=== PATIENT | female | born 1985 | race Caucasian/White ===

== ENCOUNTER → 2016-11-21 | Outpatient (CLI) | payer OTHER ==
[~2016-11-21] MED LIST: ACET-1257 PO; AMOX500C3 PO; FERR1TAB13 PO; JUICE PLUS PO; MTR600X PO; OXYC-57 PO; POLY150C4 PO
== END | disposition home or self-care (01) ==
LOC: C.LABSPEC 16:12
PROVIDERS: ATTEND Obstetrics & Gynecology
DX: O99.333 Smoking (tobacco) complicating pregnancy, third trimester (principal); Z3A.00 Weeks of gestation of pregnancy not specified; F17.200 Nicotine dependence, unspecified, uncomplicated

== ENCOUNTER 2016-12-01 23:10 | Emergency (ER) | payer OTHER ==
[~2016-12-01] VITALS: Ht 162.6 cm; Wt 71.4 kg
[2016-12-01 23:14] VITALS: Ht 162.6 cm; Wt 71.4 kg
[2016-12-01] MEDS ORDERED: SODIUM CHLORIDE 0.9% 1000ML 1,000 ML IV STA (23:23)
[2016-12-01 23:45] LABS: URINE APPEARANCE CLEAR (CLEAR); URINE BILIRUBIN NEG (NEG); URINE COLOR YELLOW; URINE EPITHELIAL CELL AUTO >30 /lpf (0-5); URINE NITRITE NEG (NEG); URINE SPECIFIC GRAVITY 1.013 (1.000-1.030); UROBILINOGEN POS (NEG); ZZUR CULT IF INDIC CLEAN CATCH YES
[2016-12-01 23:46] LABS: MANUAL MICROSCOPIC REQUIRED? NO; REVIEW REQ? NO
[2016-12-01 23:52] LABS: HEMATOCRIT 34.8 % (37-47); MEAN CELL VOLUME 89.2 fL (80-100); MEAN CORPUSCULAR HGB CONC 34.8 g/dl (32-36); PLATELET COUNT 196 K/uL (130-400); WHITE BLOOD COUNT 6.46 K/uL (4.8-10.8)
[2016-12-02] MEDS ORDERED: ACET-1257 PO
[2016-12-02] MEDS ORDERED: JUICE PLUS PO (00:02)
[2016-12-02] MEDS ORDERED: POLY150C4 PO (00:03)
[2016-12-02 00:14] LABS: BUN/CREATININE RATIO 8.2 (10-20); CALCIUM 8.1 mg/dl (8.5-10.1); CREATININE 0.87 mg/dl (0.60-1.20)
[2016-12-02 00:32] LABS: BASO % 0.5 %; BASO ABS # 0.03 K/uL (0-0.2); COMPLETE YES; IG% 1.9 %; LYMPH % 19.3 %; LYMPH ABS # 1.25 K/uL (1.2-3.4); MONO % 5.1 %; NEUT % 73.2 %
[2016-12-02] MEDS ORDERED: POTASSIUM CHLORIDE 10 MEQ TABCR PO STA (00:43)
[2016-12-02] MEDS ORDERED: AMOXICILLIN 250 MG CAP PO STA (00:46)
[2016-12-02] MEDS ORDERED: AMOX500C3 PO (00:51)
[2016-12-02 00:53] VITALS: BP 122/76; PULSE 89; TEMP 37.1; O2SAT 100
[2016-12-02 01:40] LABS: INFLUENZA A PCR Neg for Influ A (NEG); INFLUENZA B PCR Neg for Influ B (NEG)
--- NOTE | 2016-12-02 05:03 | EMERGENCY ROOM VISIT NOTE ---
History First contact with patient: 23:23 Chief Complaint: FEVER Stated Complaint: FEVER FOR A WEEK, 38 WKS History of Present Illness The patient is a 31 year old female who presents to the Emergency Room with complaints of sore throat, fever and chills for the past week. Patient is 38 weeks . First . occasions. She follows at [facility]. Patient denies abdominal pain, vomiting, diarrhea, cramping, headache, neck stiffness, chest pain, dyspnea, cough. She is tolerate by mouth fluids and food. Tmax 100.4. Patient denies vaginal itching or discharge. No contractions. Review of Systems See HPI for pertinent positives & negatives. A total of 10 systems reviewed and were otherwise negative. Past Medical/Surgical History None Social History Smoking Status: Current Every Day Smoker Alcohol Use: none Drug Use: none Marital Status: in relationship Current/Historical Medications Scheduled Amoxicillin (Amoxil), 500 MG PO TID Polysaccharide Iron Complex (Ferrex 150), 150 MG PO 3XWK [Juice Plus], 6 CAP PO DAILY Scheduled PRN Acetaminophen (Tylenol Extra Strength), 1,000 MG PO Q8 PRN for Pain or Fever Allergies Coded Allergies: No Known Allergies (Unverified , 03/11/12) Physical Exam Vital Signs Date Time Temp Pulse Resp B/P Pulse Ox O2 Delivery O2 Flow Rate FiO2 12/02/16 00:53 37.1 89 16 122/76 100 Room Air 12/01/16 23:14 36.8 101 18 127/81 97 Room Air Pain Rating (0-10): 2.0 Physical Exam VITALS: Vitals are noted on the nurse's note and reviewed by myself. Vital signs stable. GENERAL: Pleasant female, in no acute distress, nondiaphoretic, well-developed well-nourished. SKIN: The skin was without rashes, erythema, edema, or bruising. There is no tenting of the skin. Capillary reflex less than 2 seconds. HEAD: Normocephalic atraumatic. EARS: External auditory canals clear, tympanic membranes pearly baptiste without erythema or effusion bilaterally. EYES: Pupils equal round and reactive to light and accommodation. Conjunctivae without injection, sclerae without icterus. Extraocular movements intact. NOSE: Patent, turbinates without inflammation or discharge. No sinus tenderness. MOUTH: Mucous membranes moist. Pharynx with erythema without exudate. Uvula midline. Airway patent. Tongue does not deviate. NECK: Supple without nuchal rigidity. No lymphadenopathy. No thyromegaly. Cervical spine is nontender. No JVD. No meningeal signs HEART: Regular rate and rhythm without murmurs gallops or rubs. LUNGS: Clear to auscultation bilaterally without wheezes, rales or rhonchi. No dullness to percussion. No retractions or accessory muscle use. ABDOMEN: Positive bowel sounds x 4. Normal tympanic percussion. Soft, , nontender, without masses or organomegaly. Chavez sign negative. No guarding or rebound tenderness. No CVA tenderness MUSCULOSKELETAL: No muscle atrophy, erythema, or edema noted. NEURO: Patient was alert and oriented to person place and time. Normal sensation to light and sharp touch. No focal neurological deficits. Medical Decision & Procedures Laboratory Results 12/01/16 23:40 Red Blood Count 3.90, Mean Corpuscular Volume 89.2, Mean Corpuscular Hemoglobin 31.0, Mean Corpuscular Hemoglobin Concent 34.8, Mean Platelet Volume 11.0, Neutrophils (%) (Auto) 73.2, Lymphocytes (%) (Auto) 19.3, Monocytes (%) (Auto) 5.1, Eosinophils (%) (Auto) 0.0, Basophils (%) (Auto) 0.5, Neutrophils # (Auto) 4.73, Lymphocytes # (Auto) 1.25, Monocytes # (Auto) 0.33, Eosinophils # (Auto) 0.00, Basophils # (Auto) 0.03 12/01/16 23:40 Test 12/01/16 23:30 12/01/16 23:35 12/01/16 23:40 Urine Color YELLOW Urine Appearance CLEAR (CLEAR) Urine pH 6.0 (4.5-7.5) Urine Specific [place] 1.013 (1.000-1.030) Urine Protein NEG (NEG) Urine Glucose (UA) NEG (NEG) Urine Ketones NEG (NEG) Urine Occult Blood NEG (NEG) Urine Nitrite NEG (NEG) Urine Bilirubin NEG (NEG) Urine Urobilinogen POS (NEG) Urine Leukocyte Esterase TRACE (NEG) Urine WBC (Auto) 5-10 /hpf (0-5) Urine RBC (Auto) 0-4 /hpf (0-4) Urine Hyaline Casts (Auto) 1-5 /lpf (0-5) Urine Epithelial Cells (Auto) >30 /lpf (0-5) Urine Bacteria (Auto) 1+ (NEG) Influenza Type A (RT-PCR) Neg for Influ A (NEG) Influenza Type B (RT-PCR) Neg for Influ B (NEG) White Blood Count 6.46 K/uL (4.8-10.8) Red Blood Count 3.90 M/uL (4.2-5.4) Hemoglobin 12.1 g/dL (12.0-16.0) Hematocrit 34.8 % (37-47) Mean Corpuscular Volume 89.2 fL (80-100) Mean Corpuscular Hemoglobin 31.0 pg (25-34) Mean Corpuscular Hemoglobin Concent 34.8 g/dl (32-36) Platelet Count 196 K/uL (130-400) Mean Platelet Volume 11.0 fL (7.4-10.4) Neutrophils (%) (Auto) 73.2 % Lymphocytes (%) (Auto) 19.3 % Monocytes (%) (Auto) 5.1 % Eosinophils (%) (Auto) 0.0 % Basophils (%) (Auto) 0.5 % Neutrophils # (Auto) 4.73 K/uL (1.4-6.5) Lymphocytes # (Auto) 1.25 K/uL (1.2-3.4) Monocytes # (Auto) 0.33 K/uL (0.11-0.59) Eosinophils # (Auto) 0.00 K/uL (0-0.5) Basophils # (Auto) 0.03 K/uL (0-0.2) RDW Standard Deviation 41.3 fL (36.4-46.3) RDW Coefficient of Variation 12.8 % (11.5-14.5) Immature Granulocyte % (Auto) 1.9 % Immature Granulocyte # (Auto) 0.12 K/uL (0.00-0.02) Red Blood Cell Morphology Unremarkable Anion Gap 12.0 mmol/L (3-11) Est Creatinine Clear Calc Drug Dose 90.8 ml/min Estimated GFR () 102.9 Estimated GFR (Non- 88.8 BUN/Creatinine Ratio 8.2 (10-20) Calcium Level 8.1 mg/dl (8.5-10.1) Monoscreen NEG (NEG) Date/Time Source Procedure Growth Status 12/01/16 23:20 Throat Group A Streptococcus Screen - Final SPECIMEN POSITIVE FOR GROUP A BETA ST... Complete 12/01/16 23:20 Throat Group A Streptococcus Screen (MAME) - Final Complete Medications Administered Medications (Trade) Dose Ordered Sig/[place] Route Start Time Stop Time Status Last Admin Dose Admin Sodium Chloride (Nss 1000ml) 1,000 ml @ 999 mls/hr Q1H1M STAT IV 12/01/16 23:23 12/02/16 00:23 DC 12/01/16 23:44 999 MLS/HR Potassium Chloride (Klor-Con M10) 40 meq NOW STAT PO 12/02/16 00:43 12/02/16 00:44 DC 12/02/16 00:57 40 MEQ Amoxicillin (Amoxil Cap) 500 mg NOW STAT PO 12/02/16 00:46 12/02/16 00:48 DC 12/02/16 00:57 500 MG ED Course Prior records/ancillary studies reviewed. Triage Nursing notes reviewed. Additional history obtained from family The patient's history was concerning for a sore throat. Differential diagnosis: Etiologies such as viral syndrome, tonsillitis, streptococcal pharyngitis, mononucleosis, peritonsillar abscess, retropharyngeal abscess, otitis, pneumonia , influenza, as well as others were entertained. ER treatment provided: Amoxicillin On reassessment the patient felt better. Diagnostics interpreted by me: The labs revealed positive strep test Negative mono test, hypokalemia and this is replaced orally Strep pharyngitis. Patient was started on amoxicillin. She no signs of meningitis or airway comprise or abscess. She was well-appearing. She is advised to follow-up with OB in a few days or here in the ER sooner for high fevers, lethargy, neck stiffness, worsening signs or symptoms or as needed. I do not believe the patient has emergent etiologies such as peritonsillar abscess , retropharyngeal abscess, otitis, pneumonia, meningitis, urinary tract infection, sepsis, bacteremia, as well as others were deemed relatively unlikely. The pt informed about the findings as listed above. All questions were answered and pleased with the treatment. Return instructions were outlined and the patient was discharged in stable condition. Outpatient prescription management: Amoxicillin Case reviewed with my attending Referral: The patient was referred back to their primary care physician for follow-up in 2 to 3 days for a recheck of the current condition. Medical Decision as above Impression Primary Impression: Strep pharyngitis Additional Impression: Hypokalemia Departure Information Dispostion Home / Self-Care Condition GOOD Prescriptions Amoxicillin (AMOXIL) 500 Mg Cap 500 MG PO TID for 10 Days, #30 CAP Prov: Cookie Chawla .COY 12/02/16 Forms HOME CARE DOCUMENTATION FORM, IMPORTANT VISIT INFORMATION Patient Instructions My [facility], ED Strep Pharyngitis Conf Additional Instructions Amoxicillin 500mg: Take one pill 3 times daily for 10 days for your infection. All antibiotics can cause diarrhea. If this occurs and you feel worse or it does not resolve in 1-2 days follow up with your doctor or return to the Emergency Department as this could be signs of serious underlying problems. Any medication can cause an allergic reaction, stop the pills immediately and return to the ER for rash, hives, breathing difficulties, or swelling. Acetaminophen(Tylenol) may be used for fever or pain. Use 1000mg every six hours as needed. Avoid using more than 3000mg in a 24 hour period. Rest and drink plenty of fluids. Controlling your fever with Tylenol and Ibuprofen as above will make you feel better. Wash your hands after nose blowing, sneezing, or coughing. Most germs are spread through contact, therefore improper hygiene may result in your close contacts and loved ones becoming ill just like you. Continue current medications. Return to the ER for severe headache, neck stiffness, chest pain, difficulty breathing, fevers, vomiting, worsening of your condition, or as needed. Follow up with your PRINT DESIGNER this week for a recheck of your current condition. Problem Qualifiers
== END 2016-12-02 01:05 | disposition home or self-care (01) ==
LOC: C.EDB 23:11 → C.EDC 12-02 01:05
DX: O99.513 Diseases of the respiratory system complicating pregnancy, third trimester (principal); J02.0 Streptococcal pharyngitis; O26.893 Other specified pregnancy related conditions, third trimester; E87.6 Hypokalemia; O99.283 Endocrine, nutritional and metabolic diseases complicating pregnancy, third trimester; Z3A.38 38 weeks gestation of pregnancy; O99.333 Smoking (tobacco) complicating pregnancy, third trimester; F17.210 Nicotine dependence, cigarettes, uncomplicated

== ENCOUNTER 2016-12-19 15:08 | Inpatient (IN) | payer OTHER ==
[~2016-12-19] VITALS: Ht 162.6 cm; Wt 68.2 kg
[~2016-12-19 15:08] MED LIST changes: -AMOX500C3 PO; -FERR1TAB13 PO; -MTR600X PO; -OXYC-57 PO
[2016-12-19] MEDS ORDERED: LACTATED RINGER'S 1000ML 500 ML IV ONE (15:46)
[2016-12-19] MEDS ORDERED: LACTATED RINGER'S 1000ML 1,000 ML IV SCH ×2 (15:46→18:36)
[2016-12-19] MEDS ORDERED: CITRIC ACID/SODIUM CITRATE 15 ML UDC ONE (16:14)
[2016-12-19] MEDS ORDERED: LACTATED RINGER'S 1000ML 1,000 ML IV ONE (16:20)
[2016-12-19] MEDS ORDERED: MoRPHine SULFATE PF 1 MG/ML 10 ML AMP/VIAL ONE (16:24)
[2016-12-19] MEDS ORDERED: CITRIC ACID/SODIUM CITRATE 15 ML UDC PO ONE (16:30)
[2016-12-19] MEDS ORDERED: LIDOCAINE HCL 2% JELLY 30 ML TUBE EXT ONE (16:36)
[2016-12-19 16:39] LABS: BASO % 0.4 %; BASO ABS # 0.06 K/uL (0-0.2); COMPLETE YES; EOS % 0.4 %; HEMATOCRIT 33.6 % (37-47); IG% 0.5 %; LYMPH ABS # 4.25 K/uL (1.2-3.4); MEAN CELL VOLUME 94.1 fL (80-100); MEAN CORPUSCULAR HEMOGLOBIN 31.1 pg (25-34); MEAN PLATELET VOLUME 10.3 fL (7.4-10.4); MONO % 7.8 %; NEUT % 61.9 %; PLATELET COUNT 449 K/uL (130-400); RED BLOOD COUNT 3.57 M/uL (4.2-5.4); WHITE BLOOD COUNT 14.67 K/uL (4.8-10.8)
--- NOTE | 2016-12-19 16:59 | HISTORY & PHYSICAL EXAMINATION ---
DATE OF ADMISSION: 12/19/2016 PREOPERATIVE DIAGNOSES: 1. Intrauterine at 40 and 0/7 weeks. 2. Suspected intrauterine growth restriction. 3. Nonreassuring heart testing. HISTORY OF PRESENT ILLNESS: The patient is a 31-year-old 1, para 0 with an EDC of 12/19/2016 for an estimated gestational age of 40 and 0/7 weeks who presented to the office today for routine visit. On the monitor there was a decel noted and she was sent over for prolonged monitor. She notes good movement, some cramping, but no real contractions, no bleeding, no leaking. She was placed on the monitor and within the first 10 minutes she had 1 small variable. She was admitted for observation. We were going to do an ultrasound because we had concern for IUGR. She was only measuring 28-30 cm. During the course of waiting for the ultrasound, the strip was category 1 until the fetus had a spontaneous 5-6 minute prolonged deceleration to the 60s. This did resolve with multiple position changes and oxygen. Given this chain of events and our remoteness from vaginal delivery, I do not recommend induction because I suspect that this fetus will not tolerate contractions. Therefore I recommended delivery via section. ALLERGIES: No known drug allergies. MEDICATIONS: Iron and Juice Plus supplements. PAST OB AND DELIVERY MGR HISTORY: This is the patient's first . She denies history of abnormal Pap smears or sexually transmitted diseases. ALLERGIES: She has no known drug allergies. PAST MEDICAL HISTORY: She is healthy. Denies thyroid disease, asthma, heart disease, heart murmur, diabetes, kidney or liver problems. She has had the chickenpox in the past. SOCIAL HISTORY: The patient did admit to smoking a pack a day but is down to 3-4 cigarettes a day. She denies alcohol or drug use. She lives with her mother and the father of the baby is present in the room. SURGICAL HISTORY: None. PHYSICAL EXAMINATION: GENERAL: This is a well-developed, well-nourished white female in no acute distress, afebrile. VITAL SIGNS: Stable. NECK: Supple. ABDOMEN: Soft, gravid and nontender. It measures at best 30 cm. It is soft. EXTREMITIES: Benign. CERVIX EXAMINATION: Done in the office was and -[address] Bateman. Tocodynamometer shows mild intermittent contractions at best. heart tones now in the 120s with moderate variability, small accels to the 150s and other than the prolonged decel looks pretty good. LABORATORY DATA: O positive, antibody negative, Pap normal, rubella immune, RPR nonreactive, hepatitis negative, HIV negative, chlamydia and gonorrhea negative. Glucose test x2 negative. She is positive for group B strep. ASSESSMENT: 1, para 0 at 40 and 0/7 weeks by good dating who likely had IUGR was sent over for prolonged monitoring and had a 5-6 minute bradycardic decel to the 60s that did resolve with resuscitation. Unfortunately, this patient needs to be delivered, but she is very remote from delivery. I suspect that this fetus does have IUGR and may indeed have oligohydramnios as well but have not been able to confirm this via official ultrasound. We discussed the risks and benefits of possibly inducing labor, but I do not feel that this is in the patient or the fetus's best interest given these spontaneous prolonged decel in the absence of even contractions. I do not suspect that this patient's baby will tolerate labor at all. Therefore, I have recommended primary section. They are agreeable. The risks of the procedure were discussed with the patient including the risks of anesthesia, bleeding requiring transfusion, infection, poor wound healing, damage to surrounding structures including bowel, bladder, vessels, nerves and ureters with need for further surgery, hospitalization or intervention. Discussed the risk of heart attack, blood clot, stroke or and injury to the baby. Consent was reviewed and signed. The patient and the father of the baby expressed understanding of the situation and consent to the procedure, we plan to proceed urgently. DANILO
[2016-12-19] MEDS ORDERED: MEPERIDINE HCL 25 MG/ML CARP IV PRN (17:00)
[2016-12-19] MEDS ORDERED: EpHEDrine SULFATE INJ 50 MG/ML AMP IV PRN ×2 (17:00→18:45)
[2016-12-19] MEDS ORDERED: NURSING VERBAL MED ORDER ONE (17:00)
[2016-12-19] MEDS ORDERED: ONDANSETRON INJ 2 MG/ML 2 ML VIAL IV PRN (17:00)
[2016-12-19] MEDS ORDERED: HYDROmorphone INJ 1 MG/ML SYR IV PRN (17:00)
[2016-12-19] MEDS ORDERED: ATROPINE SULFATE 0.1 MG/ML 5ML SYR IV PRN (17:00)
[2016-12-19] MEDS ORDERED: FENTANYL CITRATE INJ 50 MCG/1 ML 2 ML VIAL IV PRN (17:00)
[2016-12-19] MEDS ORDERED: LABETALOL HCL IV 5 MG/ML 20ML IV PRN (17:00)
[2016-12-19] MEDS ORDERED: CEFAZOLIN IV 2,000 MG in DEXTROSE 5% 50ML 50 ML IV ONE (17:15)
[2016-12-19] MEDS ORDERED: OXYTOCIN INJ 10 UNITS/ML VIAL ONE (17:54)
[2016-12-19] MEDS ORDERED: FENTANYL CITRATE INJ 50 MCG/1 ML 2 ML VIAL ONE (17:54)
[2016-12-19] MEDS ORDERED: EpHEDrine SULFATE 50MG/5ML SYR ONE (17:56)
[2016-12-19] MEDS ORDERED: ONDANSETRON INJ 2 MG/ML 2 ML VIAL ONE (17:56)
--- NOTE | 2016-12-19 18:28 | Medical Student: [facility] ---
Operative Report Operative Date Dec 19, 2016. Pre-Operative Diagnosis 1.IUP at 40-0 2. non-reassuring heart tones 3. suspect IGR Post-Operative Diagnosis same Procedure(s) Performed primary low trasnverse caesarean section Surgeon Dr. Cook Stoker Erector Surgeon(s) Carolann Us RN and MS [id number] Estimated Blood Loss 600mls Findings living male , small amount of clear amniotic fluid. APGARS 8/9, weight 2.36kg. Uterus, tubes, ovaries normal in appearance. Drains koo Anesthesia spinal Complication(s) None Disposition L&D Implants none
[2016-12-19] MEDS ORDERED: SODIUM CHLORIDE 0.9% 1000ML 1,000 ML IV PRN (18:33)
[2016-12-19] MEDS ORDERED: LACTATED RINGER'S 1000ML 500 ML IV PRN (18:33)
[2016-12-19] MEDS ORDERED: NALOXONE HCL INJ 0.08 MG in SYRINGE 1.8 ML IV PRN (18:33)
[2016-12-19] MEDS ORDERED: NALOXONE HCL INJ 1 MG in SODIUM CHLORIDE 0.9% 1000ML 1,000 ML IV PRN (18:33)
[2016-12-19] MEDS ORDERED: METHYLERGONOVINE MALEATE 0.2 MG/ML AMP ONE (18:35)
[2016-12-19] MEDS ORDERED: MEPERIDINE HCL 75 MG/ML CARP IV PRN (18:45)
[2016-12-19] MEDS ORDERED: DiphenhydrAMINE HCL 50 MG/ML VIAL IV PRN ×2 (18:45)
[2016-12-19] MEDS ORDERED: OXYCODONE/ACETAMINOPHEN 5-325 TAB PO PRN (18:45)
[2016-12-19] MEDS ORDERED: MoRPHine SULFATE PF 1 MG/ML 10 ML AMP/VIAL EPI PRN (18:45)
[2016-12-19] MEDS ORDERED: LANOLIN OINT EXT PRN ×2 (18:45)
[2016-12-19] MEDS ORDERED: DC INTRASPINAL MORPHINE SCH (18:45)
[2016-12-19] MEDS ORDERED: NALBUPHINE HCL INJ 10 MG/ML AMP IV PRN (18:45)
[2016-12-19] MEDS ORDERED: MEPERIDINE HCL 50 MG/ML CARP IV PRN (18:45)
[2016-12-19] MEDS ORDERED: DIPHTHERIA/TETANUS/PERTUSSIS 0.5 ML SYR/VIAL IM. ONE (18:45)
[2016-12-19] MEDS ORDERED: NO NARCOTICS OR SEDATIVES SCH (18:45)
[2016-12-19] MEDS ORDERED: NALOXONE HCL 0.4 MG/1 ML VIAL/CARP IV PRN (18:45)
--- NOTE | 2016-12-19 19:37 | OPERATIVE REPORT ---
DATE OF OPERATION: 12/19/2016 PREOPERATIVE DIAGNOSES: 1. Intrauterine at 40 and 0/7th weeks. 2. Nonreassuring heart tone status. 3. Suspected intrauterine growth restriction. POSTOPERATIVE DIAGNOSES: Same. PROCEDURES: Primary low transverse section. SURGEON: Dr. Cook. ORACLE FUSION DEVELOPER: Carolann Us RN and MS [place]3. ESTIMATED BLOOD LOSS: 600 mL. FLUIDS: URINE OUTPUT: Copious amounts of clear yellow urine drained from the bladder at the end of the procedure. INDICATIONS: The patient is a 1, para 0 at 40 and 0/7th weeks who presented for her routine visit today. Her fundal measurement was found to be quite small at 28-30 cm. She was placed on the nonstress test monitor and was found to have variable and so was sent over for further monitoring. While under further monitoring and waiting ultrasound, the fetus had a decel that was prolonged, lasting for 5-6 minutes to the 60s, this resolved with resuscitation but it was spontaneous, not associated with any contractions. Given this situation, I have recommended proceeding to delivery. Unfortunately, we are miles away from vaginal delivery and I do not suspect that this fetus will tolerate contractions, so I have recommended that we proceed with delivery and they are good to go with this. FINDINGS: Viable male infant, minimal amount of amniotic fluid on amniotomy but it was clear. Apgars pending, weight pending. Uterus, tubes, and ovaries were normal bilaterally. COMPLICATIONS: None. DRAINS: Cooper. DISPOSITION: To recovery room in stable condition. PROCEDURE: The patient was taken to the operating room where she was identified verbally and by bracelet. She was transferred to the operating table where spinal anesthetic was placed and the fetus was monitored throughout this and no abnormalities were noted. The patient was placed in dorsal supine position with a leftward tilt. A Cooper catheter had previously been placed. The patient was prepped and draped in normal sterile fashion. Timeout was held identifying correct patient, procedure, positioning and preoperative antibiotics. A Pfannenstiel skin incision was made with the knife. This was taken down to the underlying layer of fascia with Bovie electrocautery. Bleeding was attended to with Bovie electrocautery. The fascia was incised in the midline with cautery and taken out laterally with scissors. The superior edge of the fascial incision was grasped, elevated and the underlying layer of rectus muscle was taken off bluntly and with scissors. In a similar fashion, the inferior edge of the fascial incision was grasped, elevated and the underlying layer of rectus muscle was taken off bluntly and with scissors. The muscles were bluntly and sharply in the midline, the peritoneum was entered bluntly and the peritoneal incision was stretched with the hard rock drill operator's hand. Bladder blade was placed. A bladder flap was created by grasping the vesicouterine peritoneum, incising with scissors and creating the bladder flap digitally. The bladder blade was replaced. Hysterotomy incision was made with the knife. Upon amniotomy, there was a very minimal amount of clear fluid. The hysterotomy incision was stretched with the hard rock drill operator's fingers. The head was wedged into the pelvis and it was removed atraumatically using hard rock drill operator's hand. The head was delivered atraumatically through the incision. The nose and mouth were bulb suctioned. There was a loose nuchal cord x1 that was reduced and rest of the infant was delivered without difficulty. There was immediate cry. Cord was clamped and cut and the was handed off to waiting felt cutter for drying and attention. Cord blood and segment were obtained. Placenta was delivered by manual extraction. Of note, there was no Faulk's jelly at all in the umbilical port. The uterus was exteriorized and cleared of all clots and debris with moistened laparotomy sponges. The hysterotomy incision was repaired with 2 layers, first in a running locked 0 layer Vicryl, and the second in an imbricating 0 Vicryl layer. Two [id number] sutures were required in the main incision for hemostasis and hemostasis was assured. Posterior cul-de-sac was irrigated and cleared of all clot and debris. The uterus was reanteriorized. Hemostasis was noted to be excellent. The rectus muscles were reapproximated in the midline with interrupted sutures of 0 Vicryl. The fascia was reapproximated starting at the edges and meeting in the midline with 0 Vicryl, the subcuticular tissue was irrigated and bleeding was attended to with Bovie electrocautery and the skin was closed with 4-0 Vicryl in subcuticular fashion. All sponge, lap and needle counts were correct x2. The patient tolerated the procedure well and was taken to recovery room in stable condition. I attest to the content of the Intraoperative Record and any orders documented therein. Any exceptio ns are noted below.
[2016-12-19 19:38] VITALS: Ht 162.6 cm; Wt 68.2 kg
[2016-12-19] MEDS ORDERED: OXYTOCIN INJ 20 UNITS in LACTATED RINGER'S 1000ML 1,000 ML IV SCH (20:00)
[2016-12-19 21:00] VITALS: O2SAT 99
[2016-12-19] MEDS: SIMETHICONE 80 MG CHEW PO SCH (21:34)
--- NOTE | 2016-12-19 21:53 | Anesthesiology Progress Note ---
Anesthesia Post Op Note Date & Time Dec 19, 2016 at 21:53 Notes Mental Status: alert / awake / arousable, participated in evaluation Pt Amnestic to Procedure: Yes Nausea / Vomiting: adequately controlled Pain: adequately controlled Airway Patency, RR, SpO2: stable & adequate BP & HR: stable & adequate Hydration State: stable & adequate Neuraxial Anesthesia: was administered, sensory block is resolving Anesthetic Complications: no major complications apparent
[2016-12-19 22:00] VITALS: O2SAT 99
[2016-12-19 22:30] VITALS: BP 111/59; PULSE 63; TEMP 37.1; O2SAT 99
[2016-12-19 23:00] VITALS: O2SAT 99
[2016-12-19 23:15] VITALS: BP 118/70; PULSE 58; TEMP 36.7; O2SAT 100
[2016-12-20] VITALS (13 sets, daily range): BP systolic 106–114; BP diastolic 59–70; PULSE 61–71; TEMP 36.8–37.1; O2SAT 95–100
[2016-12-20] MEDS: KETOROLAC TROMETHAMINE 30 MG/ML VIAL IV. PRN ×2 (00:42→08:38)
--- NOTE | 2016-12-20 07:00 | Progress Note ---
Subjective Dec 20, 2016. Subjective conversation w/ patient, physical exam Ambulation: limited ambulation (still in bed) Voiding: koo catheter in place Passing Gas: No Diet Tolerance: Clear Liquids Lochia: Small Feeding Type: Bottle Feeding (breast feeding also) Review of Systems Constitutional: No chills, No fever Respiratory: No cough, No shortness of breath Cardiac: No chest pain, No edema Abdomen: No nausea, No vomiting Objective Vital Signs Date Time Temp Pulse Resp B/P Pulse Ox O2 Delivery O2 Flow Rate FiO2 12/20/16 05:00 20 99 12/20/16 04:00 20 98 12/20/16 03:00 20 99 12/20/16 02:00 18 100 12/20/16 01:00 18 100 12/20/16 00:00 18 100 12/19/16 23:15 100 Room Air 12/19/16 23:15 36.7 58 18 118/70 100 Room Air 12/19/16 23:15 18 100 12/19/16 23:00 20 99 12/19/16 22:30 37.1 63 20 111/59 99 Room Air 12/19/16 22:30 99 Room Air 12/19/16 22:30 99 Room Air 12/19/16 22:00 20 99 12/19/16 21:00 20 99 Physical Exam General Appearance: WELL-APPEARING Respiratory/Chest: lungs clear, normal breath sounds Cardiovascular: regular rate, rhythm, no murmur Abdomen: normal bowel sounds, + tenderness (mild tenderness around incision site) Incision Description: Clean, Dry & Intact Extremities: non-tender, no pedal edema, no calf tenderness Laboratory Results Last 24 Hours Test 12/19/16 16:30 12/20/16 06:00 White Blood Count 14.67 K/uL Red Blood Count 3.57 M/uL Hemoglobin 11.1 g/dL Hematocrit 33.6 % Mean Corpuscular Volume 94.1 fL Mean Corpuscular Hemoglobin 31.1 pg Mean Corpuscular Hemoglobin Concent 33.0 g/dl Platelet Count 449 K/uL Mean Platelet Volume 10.3 fL Neutrophils (%) (Auto) 61.9 % Lymphocytes (%) (Auto) 29.0 % Monocytes (%) (Auto) 7.8 % Eosinophils (%) (Auto) 0.4 % Basophils (%) (Auto) 0.4 % Neutrophils # (Auto) 9.08 K/uL Lymphocytes # (Auto) 4.25 K/uL Monocytes # (Auto) 1.15 K/uL Eosinophils # (Auto) 0.06 K/uL Basophils # (Auto) 0.06 K/uL RDW Standard Deviation 47.5 fL RDW Coefficient of Variation 13.7 % Immature Granulocyte % (Auto) 0.5 % Immature Granulocyte # (Auto) 0.07 K/uL Nucleated RBC Absolute Count (auto) 0.02 K/uL Nucleated Red Blood Cells % 0.1 % Assessment and Plan Problem List Medical Problems: (1) Strep pharyngitis Status: Acute Post-Op (C section) Day#: 1 Continue Routine Care: s/p Day 1 - Vital signs reviewed and WNL - Hemoglobin 11.1 yesterday - Blood type: O+, GBS+, Rubella immune - Pt doing well clinically - Encourage ambulation, advance diet, remove koo catheter, control pain with motrin and percocet prn, monitor lochia - CONTINUE REGULAR POST C SECTION CARE Resident Physician Supervision Note: I was present with Dr. Quan during the history and exam. I discussed the case with the resident and agree with the findings and plan as documented in the note. Any exceptions or clarifications are listed here: none, routine post op care. Documented By: Diya Cook
[2016-12-20 07:02] LABS: BASO % 0.4 %; BASO ABS # 0.05 K/uL (0-0.2); EOS % 0.2 %; HEMATOCRIT 26.9 % (37-47); IG% 0.5 %; LYMPH ABS # 2.94 K/uL (1.2-3.4); MEAN CELL VOLUME 92.4 fL (80-100); MEAN CORPUSCULAR HEMOGLOBIN 30.6 pg (25-34); MEAN CORPUSCULAR HGB CONC 33.1 g/dl (32-36); MONO % 8.7 %; NEUT % 68.2 %; PLATELET COUNT 340 K/uL (130-400); RED BLOOD COUNT 2.91 M/uL (4.2-5.4); WHITE BLOOD COUNT 13.36 K/uL (4.8-10.8)
[2016-12-20 07:26] LABS: COMPLETE YES
[2016-12-20] MEDS: DOCUSATE SODIUM 100 MG CAP PO SCH ×2 (08:38→20:02)
[2016-12-20] MEDS: PRENATAL VITAMIN TAB PO SCH (08:39)
[2016-12-20] MEDS: SIMETHICONE 80 MG CHEW PO SCH ×3 (08:39→20:00)
[2016-12-20] MEDS: OXYCODONE/ACETAMINOPHEN 5-325 TAB PO PRN ×2 (15:41→20:01)
[2016-12-20] MEDS: IBUPROFEN 600 MG TAB PO PRN ×2 (15:42→20:01)
[2016-12-21 00:30] VITALS: BP 113/73; PULSE 58; TEMP 36.8
[2016-12-21] MEDS: IBUPROFEN 600 MG TAB PO PRN ×6 (00:37→23:14)
[2016-12-21] MEDS: OXYCODONE/ACETAMINOPHEN 5-325 TAB PO PRN ×6 (00:37→23:15)
[2016-12-21 06:41] LABS: HEMATOCRIT 27.4 % (37-47)
--- NOTE | 2016-12-21 07:43 | Progress Note ---
Subjective Dec 21, 2016. Subjective conversation w/ patient, physical exam Ambulation: ambulating normally Voiding: no voiding problems Passing Gas: Yes Diet Tolerance: Regular Diet Lochia: Moderate Feeding Type: Breast Feeding Review of Systems Constitutional: No fever Respiratory: No cough, No shortness of breath Cardiac: No chest pain, No edema, No palpitations Abdomen: No nausea, No pain, No vomiting Objective Vital Signs Date Time Temp Pulse Resp B/P Pulse Ox O2 Delivery O2 Flow Rate FiO2 12/21/16 00:30 Room Air 12/21/16 00:30 36.8 58 18 113/73 Room Air 12/20/16 19:25 36.8 67 18 112/68 Room Air 12/20/16 15:35 98 Room Air 12/20/16 15:35 36.9 61 20 114/70 98 Room Air 12/20/16 12:35 37.0 71 16 106/59 97 Room Air 12/20/16 12:02 18 98 12/20/16 10:00 16 97 12/20/16 09:00 16 95 12/20/16 07:50 37.1 64 16 110/63 97 Room Air 12/20/16 07:50 16 97 12/20/16 07:50 Room Air Physical Exam General Appearance: WELL-APPEARING, NO APPARENT DISTRESS Respiratory/Chest: chest non-tender, lungs clear Cardiovascular: regular rate, rhythm, no murmur Abdomen: normal bowel sounds, soft Fundus: Firm, Non-Tender, Relation to Umbilicus (2 cm below) Incision Description: Clean, Dry & Intact Extremities: normal range of motion, non-tender, no calf tenderness Laboratory Results Last 24 Hours Test 12/21/16 06:20 Hemoglobin 8.8 g/dL Hematocrit 27.4 % Assessment and Plan Problem List Medical Problems: (1) Strep pharyngitis Status: Acute Post-Op (C section) Day#: 2 Continue Routine Care: Resident Physician Supervision Note: I was present with Dr. Quan during the history and exam. I discussed the case with the resident and agree with the findings and plan as documented in the note. Any exceptions or clarifications are listed here: [None] Documented By: Clarice Bateman In my clinical judgment this beneficiary meets acute admission criteria, established by [facility], that includes being hospitalized through two midnights.s/p C section day 2 - Vital signs reviewed and wnl - Hgb reviewed 8.9 yesterday - GBs+, O+, Rubella immune - Pt doing well clinically - Encourage ambulation, monitor and control pain w/motrin and percocet, resume regular diet - Encourage breast feeding - CONTINUE ROUTINE POST CARE
[2016-12-21] MEDS ORDERED: OXYC-57 PO (07:53)
[2016-12-21] MEDS ORDERED: MTR600X PO (07:53)
--- NOTE | 2016-12-21 07:55 | Discharge Instructions ---
Discharge Instructions Admission Reason for Admission: Non-Reassuring Electronic Monitoring Tracing Discharge Discharge Diagnosis / Problem: recovery from section Discharge Goals Goal(s): Routine recovery after Medications Continue Dispensed Medications: lansinoh Activity Recommendations Activity Limitations: per Instructions/Follow-up section . Instructions / Follow-Up Instructions / Follow-Up ACTIVITY RECOMMENDATIONS: * Gradual return to full activity over the next 2-3 weeks. * No lifting - nothing heavier than baby over the next 2-3 weeks. * Do not engage in vigorous exercise, sexual activity or sports until cleared by your physician. * Do not drive or operate any motorized equipment until cleared by your physician. * You may shower/bathe daily. MEDICATIONS: For discomfort or pain, you may use Acetaminophen (Tylenol), Ibuprofen (Advil), or Naproxen (Aleve) following the package directions. For constipation you may use Colace following the package directions. BREAST CARE: If you are not breast feeding: * Wear a supportive bra 24 hours a day for one to two weeks. * Avoid stimulating your breasts and nipples as much as possible during the first few weeks after delivery. * When taking a shower, have the warm water hit your back, not breasts. * When your breasts feel full, apply ice packs. Usually three to four times a day helps ease the discomfort. * Take a mild pain medication (Tylenol / Motrin) when you are uncomfortable. If breast feeding: * Use breast milk to lubricate nipples. Lansinoh cream may be used for sore nipples. You do not need to remove cream prior to breast feeding. If using a different brand of cream, check the label for directions regarding removal of cream prior to nursing. * Wear a supportive bra. * If having problems with breasts or breast feeding, call a client experience consultant or your health care provider. SPECIAL CARE INSTRUCTIONS: When you are discharged from the hospital, it is important for you to follow the instructions listed below: * During the first week at home, you should be able to care for yourself and your baby. In addition, the usual light household activities are encouraged. * Limit your activities to the way you feel. Do not try to clean the house or move furniture. Be sensible. * If you actively engage in sports and have done so up until the time of your delivery, you may resume these activities as soon as you feel able. This may take up to one month or even longer. Use good judgment. * Continue to take your vitamins for at least six weeks after the of your baby. * Your diet need not be limited unless you were on a special diet before your delivery. Breast-feeding mothers need around 2500 calories per day and at least 64-80 ounces of fluid per day (8 to 10 glasses). * You should eat foods from the four major food groups. Crash diets or fad diets are to be avoided. Eating lean meats, fresh fruits and vegetables, low-fat dairy products, high fiber foods and a regular exercise program, will help you get back to your pre- weight without putting your health at risk. * Constipation is sometimes a problem after delivery. Take a mild laxative as needed. If breast feeding, Milk of Magnesia is acceptable to use. You may use a suppository or Fleets enema. * A daily shower or tub bath is suggested. Wash incision daily with warm soapy water and pat dry. It doesn't need to be covered unless drainage is present. * A bloody vaginal discharge will usually continue until around four weeks . A small amount of bleeding may continue for as long as six weeks. Vaginal discharge changes from the bright red bleeding after delivery to pink then brownish and finally yellowish-pink before becoming white and disappearing. * Bleeding may increase with activity. Your first period may come in 4-8 weeks. If you are breast feeding, your period may be delayed even longer. * Shafter (sex) can begin whenever both you and your partner feel comfortable and do not have any form of genital infection. It is recommended that you wait at least six weeks for internal and external healing to occur. If you have questions, please talk to your health care practitioner. A condom should be used to prevent infection and . * Foreplay, gentle intercourse and lubrication is very important the first several times to prevent pain. A water-based lubricant such as K-Y jelly or Astroglide may be used. * If you have RH negative blood and your baby is RH positive, you will receive RHOGAM by injection prior to discharge. The nurse will give you a card to keep with you that has the date and place that you received RHOGAM after delivery. * During your care, you had a Rubella screen done to check for the presence of rubella antibodies in your blood. If your test was negative, you will receive a Rubella vaccine prior to discharge. This vaccine may cause a fever, soreness at the injection site and flu-like symptoms. If these symptoms persist, notify your health care practitioner. is not advised for one month after a Rubella vaccine. * Verbalizes understanding of car seat law as reviewed with patient nursing. * Car Seat hand-out given and reviewed with patient by nursing. * Shaken baby information reviewed with patient by nursing. Call you doctor if: * Heavy bleeding (saturating several pads an hour) or passing clots the size of your fist. * A fever >101 degrees F (38.3 degrees C) on two occasions four hours apart and /or chills. * Unusual pain in the pelvic or vaginal areas. * Call the doctor for any increased redness, drainage or swelling around the incision and any pain unrelieved by prescribed pain medication. * "Baby Blues" lasting longer than two weeks. If you have any questions or concerns, call your health care practitioner at . FOLLOW UP VISIT: * Please call the office at to schedule a 6 week examination. It is important you keep this appointment. It is important for you to make arrangements for either yearly or twice yearly check-ups thereafter. Current Hospital Diet Patient's current hospital diet: Regular Diet Discharge Diet Recommended Diet: Regular OB Diet Procedures Procedures Performed: Term , primary caesarean section for non-reassuring heartrate Living male child delivered at 1743 Pending Studies Studies pending at discharge: no Medical Emergencies . Who to Call and When: Medical Emergencies: If at any time you feel your situation is an emergency, please call [phone] immediately. . Non-Emergent Contact Non-Emergency issues call your: Senior Property Manager . . "Provider Documentation" section prepared by Clarice Bateman. VTE Core Measure Inpt VTE Proph given/why not?: Treatment not indicated
[2016-12-21 08:07] VITALS: BP 108/66; TEMP 36.8; O2SAT 97
[2016-12-21] MEDS: PRENATAL VITAMIN TAB PO SCH (08:31)
[2016-12-21] MEDS: DOCUSATE SODIUM 100 MG CAP PO SCH ×2 (08:31→19:36)
[2016-12-21] MEDS: SIMETHICONE 80 MG CHEW PO SCH ×4 (08:31→19:36)
[2016-12-21 09:36] VITALS: O2SAT 97
[2016-12-21 16:30] VITALS: BP 112/66; PULSE 62; TEMP 36.6; O2SAT 96; O2SAT 97
[2016-12-21 23:10] VITALS: BP 120/71; PULSE 67; TEMP 36.8
[2016-12-22] MEDS: IBUPROFEN 600 MG TAB PO PRN ×3 (03:45→12:27)
[2016-12-22] MEDS: OXYCODONE/ACETAMINOPHEN 5-325 TAB PO PRN ×3 (03:46→12:27)
--- NOTE | 2016-12-22 07:32 | Progress Note ---
Subjective Dec 22, 2016. Subjective conversation w/ patient, physical exam Ambulation: ambulating normally Voiding: no voiding problems Passing Gas: Yes Diet Tolerance: Regular Diet Lochia: Small Feeding Type: Breast Feeding Review of Systems Constitutional: No chills, No fever Respiratory: No cough, No shortness of breath Cardiac: No chest pain, No palpitations Abdomen: + pain (mild abdominal andrea around incision site), No nausea, No vomiting Objective Vital Signs Date Time Temp Pulse Resp B/P Pulse Ox O2 Delivery O2 Flow Rate FiO2 12/21/16 23:10 36.8 67 18 120/71 Room Air 12/21/16 23:10 Room Air 12/21/16 16:30 97 Room Air 12/21/16 16:30 36.6 62 16 112/66 96 Room Air 12/21/16 09:36 97 Room Air 12/21/16 08:07 36.8 16 108/66 97 Room Air 12/21/16 07:30 Room Air Physical Exam General Appearance: WELL-APPEARING, NO APPARENT DISTRESS Respiratory/Chest: lungs clear, normal breath sounds Cardiovascular: regular rate, rhythm, no murmur Abdomen: normal bowel sounds, non tender, soft Fundus: Firm, Non-Tender, Relation to Umbilicus (2 cm below umbilicus) Incision Description: Clean, Dry & Intact Extremities: non-tender, no calf tenderness Assessment and Plan Problem List Medical Problems: (1) Strep pharyngitis Status: Acute Post-Op (C section) Day#: 3 Continue Routine Care: s/p C- section day 3 - Vital signs reviewed and wnl - Hgb reviewed 8.8 yesterday, will send home with ferrous sulfate - Blood type: O+, GBS +, Rubella immune - Pt doing well clinically - Encourage ambulation, monitor and control pain w/motrin and percocet prn, resume regular diet, monitor lochia - Encourage breast feeding - Pt counselled on discharge instructions - PATIENT TO BE DISCHARGED TODAY
[2016-12-22] MEDS ORDERED: FERR1TAB13 PO (07:33)
[2016-12-22] MEDS: SIMETHICONE 80 MG CHEW PO SCH ×2 (08:25→12:27)
[2016-12-22] MEDS: DOCUSATE SODIUM 100 MG CAP PO SCH (08:25)
[2016-12-22] MEDS: PRENATAL VITAMIN TAB PO SCH (08:25)
[2016-12-22 09:00] VITALS: BP 124/86; PULSE 56; TEMP 36.5; O2SAT 98
[2016-12-22 13:16] VITALS: BP_DIAS 86; PULSE 56; TEMP 36.5
--- NOTE | 2016-12-26 16:49 | DISCHARGE SUMMARY ---
ADMISSION DIAGNOSES: 1. Intrauterine at 40 and 0/7 weeks. 2. Nonreassuring heart testing. 3. growth restriction. POSTOPERATIVE DIAGNOSES: Same. PROCEDURES: Emergent primary low transverse section. HISTORY OF PRESENT ILLNESS: The patient is a 31-year-old 1, para 0 with an EDC of 12/19/2016 for an estimated gestational age of 40 and 0/7 weeks who presented to the office for routine visit. On the monitor, there was a decell noted and she was sent over for prolonged monitoring. She noted good movements and cramping, but no real contractions, no bleeding or leaking. She was placed on the monitor and within the first 10 minutes she had 1 small variable. She was admitted for observation. We were going to do an ultrasound for biophysical profile and measurements because of concern for IUGR. She was only measuring 28-30 cm. During the course of waiting for the ultrasound, the strip of category 1 showed the fetus had a spontaneous 5-6 minutes prolonged deceleration to the 60s. This did resolve with multiple position changes and oxygen. Given this chain of events and her remoteness from vaginal delivery, I do not recommend induction because I suspect the fetus will not tolerate contractions; therefore I recommended delivery via section. For the rest of the patient's detailed history and physical, please see her dictated history and physical assessment of 1, para 0 at 40 and 0/7 weeks with nonreassuring heart testing and a suspicion for IUGR. HOSPITAL COURSE: The patient was admitted, she underwent a primary low transverse section without difficulty. Estimated blood loss was 600 mL. Findings at the time of surgery revealed a viable male infant with a minimal amount of amniotic fluid on amniotomy, but this was clear. Uterus, tubes, and ovaries were normal bilaterally. Apgars were 8 and 9. Weight was 2.36 kilogram. The patient's postoperative course was uncomplicated. She tolerated a regular diet, ambulated without difficulty, urinated after removal of her Cooper catheter, passed gas, was . Her pain was well controlled on oral pain medications. She was discharged home on postoperative day #3 with prescriptions for pain management. Her discharge H\T\H was 8.8 and 27.4.
== END 2016-12-22 14:25 | disposition home or self-care (01) | DRG 765 ==
LOC: C.OPB 15:08 → C.LD 15:09 → C.OPB 16:22 → C.OBG 20:55
PROVIDERS: ADMIT Obstetrics & Gynecology; ATTEND Obstetrics & Gynecology
PROC: 10D00Z1 Extraction of Products of Conception, Low, Open Approach (ICD-10-PCS; principal; 2016-12-19 16:27)
DX: O76 Abnormality in fetal heart rate and rhythm complicating labor and delivery (principal); O36.5930 Maternal care for other known or suspected poor fetal growth, third trimester, not applicable or unspecified; Z3A.40 40 weeks gestation of pregnancy; O99.333 Smoking (tobacco) complicating pregnancy, third trimester; F17.210 Nicotine dependence, cigarettes, uncomplicated; O69.81X0 Labor and delivery complicated by cord around neck, without compression, not applicable or unspecified; Z22.330 Carrier of Group B streptococcus; Z37.0 Single live birth

== ENCOUNTER 2016-12-28 17:55 | Emergency (ER) | payer OTHER ==
[~2016-12-28] VITALS: Ht 162.6 cm; Wt 63.0 kg
[~2016-12-28 17:55] MED LIST changes: -ACET-1257 PO; +FERR1TAB13 PO; +MTR600X PO; +OXYC-57 PO
[2016-12-28 18:05] VITALS: TEMP 36.8; Ht 162.6 cm; Wt 63.0 kg
[2016-12-28 19:22] VITALS: BP 119/77; PULSE 88; O2SAT 100
--- NOTE | 2016-12-28 21:29 | EMERGENCY ROOM VISIT NOTE ---
History First contact with patient: 18:38 Chief Complaint: BLEEDING Stated Complaint: C SECTION INCISION BLEEDING Nursing Triage Summary: Pt presents s/p 9 days ago, sutures bleeding-- one on the right 2 days ago, other 2 sutures started this morning. History of Present Illness The patient is a 31 year old female who presents to the Emergency Room with complaints of a surgical wound bleeding throughout the course of the day. The patient had a section 9 days ago, and noticed that the left side of her surgical incision had bright red blood today. She has been increasing activity at home while she recovers. She does not recall a distinct injury that may have elicited the blood. The patient is without fever or chills. She is not with new tenderness or discomfort in the area. She does not have additional complaints. Review of Systems More than 10 systems were reviewed and otherwise negative with the exception of history of present illness. Past Medical/Surgical History Medical Problems: (1) 40 weeks gestation of (2) heart rate decelerations affecting management of mother (3) Non-reassuring electronic monitoring tracing (4) with 39 completed weeks gestation (5) [id number]-rgycy fetus, third trimester Family History No pertinent family history Social History Smoking Status: Current Every Day Smoker Alcohol Use: none Drug Use: none Marital Status: in relationship Current/Historical Medications Scheduled Polysaccharide Iron Complex (Ferrex 150), 150 MG PO 3XWK [Juice Plus], 6 CAP PO DAILY Scheduled PRN Ibuprofen (Ibuprofen), 600 MG PO Q4H PRN for Pain, TUCKER, Cramping, or Fever Oxycodone/Acetaminophen 5MG/325MG (Percocet 5MG/325MG), 1 TAB PO Q4H PRN for Pain - Pain Scale 1-5 Allergies Uncoded Allergies: antibiotic (Allergy, Unknown, GI SYMPTOMS/fever, 12/19/16) unknown drug or reaction Physical Exam Vital Signs Date Time Temp Pulse Resp B/P Pulse Ox O2 Delivery O2 Flow Rate FiO2 12/28/16 19:22 88 16 119/77 100 12/28/16 18:05 36.8 95 20 112/61 99 Room Air Pain Rating (0-10): 0 Physical Exam VITALS: Vitals are noted on the nurse's note and reviewed by myself. Vital signs stable. GENERAL: Well-developed, well-nourished, white female, who is in no acute distress and resting comfortably. Patient is cooperative with the examination. HEAD: Normocephalic atraumatic. HEART: Regular rate and rhythm without murmurs gallops or rubs. LUNGS: Clear to auscultation bilaterally without wheezes, rales or rhonchi. No retractions or accessory muscle use. SKIN: The skin was with a well-healing surgical incision over the lower pelvis consistent with section. There is no obvious dehiscence or hemorrhage. There is a small amount of red blood on the left and mid aspect of this wound. There is no significant cellulitis or abscess. This area is not significantly tender. Medical Decision & Procedures ED Course Physical exam and history were performed. Nursing notes and EMR were reviewed. Patient appears to have slight bleeding from her section wound. On exam there are a few Steri-Strips that are soaked in bright red blood. These were gently removed, and the incision was inspected. There does not appear to be significant dehiscence, and overall the wound is healing well. I do not appreciate signs of infection. Using benzoin adhesive additional Steri-Strips were placed to help with support. Overall I feel the patient's wound is healing well, and should continue to heal without complication. I do recommend the family follow with [facility] for further care and management. If they do have active hemorrhage or significant blood they are certainly to return back to the ER. The patient and family were pleased with this and voiced understanding. They rated her discomfort a 0/10 at the time of departure. The chart was completed utilizing [employer] Speech Voice Recognition Software. Grammatical errors, random word insertions, pronoun errors, and incomplete sentences are an occasional consequence of this system due to software limitations, ambient noise, and hardware issues. Any formal questions or concerns about the content, text, or information contained within the body of this dictation should be directly addressed to the provider for clarification. . Medical Decision Differential diagnosis includes, but is not limited to: Dehiscence, infection, postoperative hemorrhage, and others Impression Primary Impression: Postoperative bleeding from incision Departure Information Dispostion Home / Self-Care Condition GOOD Forms HOME CARE DOCUMENTATION FORM, IMPORTANT VISIT INFORMATION Patient Instructions My [facility] Additional Instructions You were seen and evaluated today on an emergency basis only. This is not a substitute for, or an effort to provide, complete comprehensive medical care. It is not possible to recognize and treat all injuries or illnesses in a single emergency department visit. For this reason it is recommended that you followup with [facility] for ongoing care and evaluation. Be careful to not bend, flex, or lift. Do not strain your abdominal muscles. You are welcome to return to the emergency department anytime with new, worsening, or concerning symptoms.
== END 2016-12-28 19:24 | disposition home or self-care (01) ==
LOC: C.EDB 17:56 → C.EDD 19:24
DX: O90.89 Other complications of the puerperium, not elsewhere classified (principal); F17.210 Nicotine dependence, cigarettes, uncomplicated